=== PATIENT | female | born 1995 | race Two or more races ===

== ENCOUNTER 2024-04-23 22:21 | Emergency (ER) | payer OTHER ==
[~2024-04-23] VITALS: Ht 170.2 cm; Wt 87.1 kg
[2024-04-24] MEDS ORDERED: HYDROCODONE/APAP 5/325MG TABLET ONE (02:38)
[2024-04-24] MEDS: HYDROCODONE/APAP 5/325MG TABLET PO ONE (02:42)
[2024-04-24] MEDS ORDERED: IBUP-1957 PO (03:26)
[2024-04-24 03:36] VITALS: BP 117/78; TEMP 97.9; O2SAT 98
== END 2024-04-24 03:38 | disposition home or self-care (01) ==
LOC: ER 22:30
DX: S30.0XXA Contusion of lower back and pelvis, initial encounter (principal); S09.90XA Unspecified injury of head, initial encounter; Z79.1 Long term (current) use of non-steroidal anti-inflammatories (NSAID); M54.50 Low back pain, unspecified; M53.3 Sacrococcygeal disorders, not elsewhere classified; W19.XXXA Unspecified fall, initial encounter; Y93.89 Activity, other specified; Y92.89 Other specified places as the place of occurrence of the external cause; Y99.8 Other external cause status
CPT/HCPCS: 72131-TC